=== PATIENT | male | born 1965 | race Caucasian/White ===

== ENCOUNTER → 2018-04-19 11:39 | Outpatient (CLI) | payer OTHER, SELFPAY | PROVIDERS: Family Provider Family Medicine; PCP Family Medicine | DX: Z23 Encounter for immunization (principal) | CPT/HCPCS: 90471; 90686 ==

== ENCOUNTER → 2019-03-27 14:18 | Outpatient (CLI) | payer OTHER, SELFPAY | PROVIDERS: PCP Family Medicine | DX: Z23 Encounter for immunization (principal) | CPT/HCPCS: 90471; 90686 ==

== ENCOUNTER → 2020-03-27 07:12 | Outpatient (CLI) | payer OTHER, SELFPAY ==
[2020-03-27 09:36] LABS: Alanine Aminotransferase 44 IU/L (<50); Albumin 4.3 g/dL (3.5-5.0); Albumin Globulin Ratio 1.7 (1.0-2.8); Alkaline Phosphatase 41 U/L (38-126); Aspartate Aminotransferase 25 IU/L (17-59); BUN Creatinine Ratio 18.3 (6-22); Bilirubin Total 0.8 mg/dL (0.2-1.3); Blood Urea Nitrogen 17 mg/dL (9-20); Calcium 9.2 mg/dL (8.4-10.2); Carbon Dioxide 26 mmol/L (22-32); Chloride 106 mmol/L (98-107); Cholesterol 190 mg/dL (140-199); Estimated Glomerular Filt Rate > 60.0 mL/min (>60); Globulin 2.5 g/dL (1.7-4.1); Glucose 95 mg/dL (70-100); HDL Cholesterol 36 mg/dL (40-60); HEMOLYSIS < 15 (0-50); LDL Cholesterol Calculated 123 mg/dL (<100); Potassium 3.8 mmol/L (3.4-5.1); Sodium 141 mmol/L (137-145); Total Protein 6.8 g/dL (6.3-8.2); Triglycerides 156 mg/dL (35-150)
[2020-03-27 10:05] LABS: Prostate Specific Antigen Scrn 2.81 ng/mL (0.1-4.0)
== END ==
PROVIDERS: PCP Family Medicine; Referring Provider Internal Medicine; Visit Provider Internal Medicine
DX: J45.20 Mild intermittent asthma, uncomplicated (principal); Z13.1 Encounter for screening for diabetes mellitus; Z13.220 Encounter for screening for lipoid disorders; Z13.6 Encounter for screening for cardiovascular disorders; Z12.5 Encounter for screening for malignant neoplasm of prostate
CPT/HCPCS: 36415; 80053; 80061; G0103

== ENCOUNTER → 2020-03-29 00:08 | Outpatient (CLI) | payer OTHER, SELFPAY | PROVIDERS: PCP Family Medicine; Referring Provider Internal Medicine; Visit Provider Internal Medicine | DX: Z23 Encounter for immunization (principal) | CPT/HCPCS: 90471; 90686 ==

== ENCOUNTER → 2020-06-25 10:32 | Outpatient (CLI) | payer OTHER, SELFPAY ==
[2020-06-25] MEDS: COVID-19 VACC(MODERNA-1)/PF 100 MCG/0.5 ML VIAL IM (10:37)
== END ==
PROVIDERS: PCP Family Medicine; Visit Provider Internal Medicine
DX: Z23 Encounter for immunization (principal)
CPT/HCPCS: 0011A; 91301

== ENCOUNTER → 2020-07-22 08:12 | Outpatient (CLI) | payer OTHER, SELFPAY ==
[2020-07-22] MEDS: COVID-19 VACC #2, MRNA(MOD) 100 MCG/0.5 ML VIAL IM (08:15)
== END ==
PROVIDERS: PCP Family Medicine; Visit Provider Internal Medicine
DX: Z23 Encounter for immunization (principal)
CPT/HCPCS: 0012A; 91301

== ENCOUNTER → 2021-04-08 15:35 | Outpatient (CLI) | payer OTHER, SELFPAY ==
[2021-04-08 16:10] LABS: COVID19 -Nasal RAPID Negative (Negative)
== END ==
PROVIDERS: PCP Family Medicine; Referring Provider Nurse Practitioner; Visit Provider Nurse Practitioner
DX: Z20.822 Contact with and (suspected) exposure to COVID-19 (principal)
CPT/HCPCS: 87635

== ENCOUNTER → 2021-04-20 19:31 | Outpatient (CLI) | payer OTHER, SELFPAY | PROVIDERS: PCP Family Medicine; Referring Provider Internal Medicine; Visit Provider Internal Medicine | DX: Z23 Encounter for immunization (principal) | CPT/HCPCS: 90471; 90686 ==

== ENCOUNTER → 2021-04-24 12:14 | Outpatient (CLI) | payer OTHER, SELFPAY ==
[2021-04-24] MEDS: COVID-19 VACC #3, MRNA(MOD) 50 MCG/0.25 ML VIAL IM (12:19)
== END ==
PROVIDERS: PCP Family Medicine; Visit Provider Internal Medicine
DX: Z23 Encounter for immunization (principal)
CPT/HCPCS: 0013A; 91301

== ENCOUNTER → 2022-03-26 12:39 | Outpatient (CLI) | payer OTHER, SELFPAY | PROVIDERS: Referring Provider Internal Medicine; Visit Provider Internal Medicine | DX: Z23 Encounter for immunization (principal) | CPT/HCPCS: 90471; 90686 ==

== ENCOUNTER 2022-10-07 08:09 | Day surgery (SDC) | payer OTHER, SELFPAY ==
--- NOTE | 2022-10-07 | PATH_ITS ---
[facility] Accession Number: [id number] No. of containers..04 Tissue . 01 Material submitted: . PART A: cecum - CECAL POLUYP X 2 PART B: colon - TRANSVERSE COLON POLYP PART C: colon - DESCENDING COLON POLYP PART D: rectum - RECTAL POLYP . 01 Diagnosis: A. Cecal Polyps: Tubular adenoma x2. . B. Transverse Colon Polyp: Colonic mucosa with prominent benign lymphoid aggregate. Negative for dysplasia or malignancy. . C. Descending Colon Polyp: Tubular adenoma. . D. Rectal Polyp: Hyperplastic polyp. MRV 10/12/2022 1243 Local . 01 Electronically signed: . Jerry Hi MD, PhD, Pathologist NPI- [id number] . 01 Gross description: . Part A: CECAL POLUYP X 2: Received in formalin are 2 fragment(s) of patricio, soft tissue measuring 0.3 x 0.2 x 0.2 cm to 0.6 x 0.3 x 0.2 cm submitted entirely in 1 cassette(s) Part B: TRANSVERSE COLON POLYP: Received in formalin is 1 fragment(s) of patricio, soft tissue measuring 0.7 x 0.3 x 0.2 cm submitted entirely in 1 cassette(s) Part C: DESCENDING COLON POLYP: Received in formalin are 4 fragment(s) of patricio, soft tissue measuring 0.2 x 0.2 x 0.2 cm to 0.5 x 0.4 x 0.3 cm submitted entirely in 1 cassette(s) Part D: RECTAL POLYP: Received in formalin is 1 fragment(s) of patricio, soft tissue measuring 0.6 x 0.4 x 0.4 cm submitted entirely in 1 cassette(s) /LIONEL 10/08/2022 1831 Local . 01 Pathologist provided ICD-10: D12.0, D12.4, K62.1 . 01 CPT . 007785, 979059, 506961, 851819 Performed at: 01 [facility] [address] [place] [address] [id number] MD Barrett Lorenzana MD Phone: [phone]
[2022-10-07 08:23] VITALS: BP 148/93; PULSE 93; RESP 18; TEMP 36.5; O2SAT 96; BMI 30.9
[2022-10-07] MEDS: LACTATED RINGERS 1,000 ML 42 ML IV (08:32)
--- NOTE | 2022-10-07 09:33 | PM.HP.1 ---
History of Present Illness History of Present Illness Date Patient Seen: 10/07/22 Time Patient Seen: 09:33 Chief complaint: Colonoscopy Narrative: Tree is a 57-year-old man who is here for a colonoscopy. His last colonoscopy was 5 years ago and was normal. He had 1 about 10 years ago with at least 1 tubular adenoma removed. [facility] Medical History (Updated 10/07/22 @ 09:34 by Darvin Boyd MD) Asthma, mild intermittent BMI 30.0-30.9,adult Essential hypertension Surgical History (Updated 10/18/17 @ 05:05 by Conversion Provider) History of vasectomy Family History (Updated 10/05/16 @ 00:00 by Conversion Provider) Father Hypertension Mother Age: 79 Hypertension High cholesterol Social History Smoking Status: Never smoker alcohol intake: former Meds Home Medications and Allergies Home Medications Medication Instructions Recorded Confirmed Type albuterol sulfate 90 mcg/actuation 2 puff inhalation Q4-6H PRN 06/09/20 10/07/22 Rx aerosol inhaler (Ventolin HFA) shortness of breath or wheezing #18 grams triamcinolone acetonide 0.1 % 1 applic topical QID #80 grams 03/30/21 10/07/22 Rx topical cream amlodipine 5 mg tablet 5 mg PO DAILY #90 tabs 03/22/22 10/07/22 Rx fluticasone propionate 220 2 puff inhalation BID #36 grams 04/12/22 10/07/22 Rx mcg/actuation HFA aerosol inhaler (Flovent HFA) alfuzosin 10 mg tablet,extended 10 mg PO DAILY #90 tabs 04/13/22 10/07/22 Rx release 24 hr omeprazole 40 mg capsule,delayed 40 mg PO BID #180 caps 07/31/22 10/07/22 Rx release Allergies Allergy/AdvReac Type Severity Reaction Status Date / Time codeine [CODEINE] Allergy Mild NAUSEA Verified 10/07/22 08:32 NUTS Allergy Severe THROAT Uncoded 10/07/22 08:32 SWELLS Exam Vital Signs (past 8 hours): - 10/07/22 08:23 Temperature 97.7 F Pulse Rate 93 H Respiratory Rate 18 Blood Pressure 148/93 H Pulse Oximetry 96 Oxygen Delivery Method Room Air Oxygen Delivery Method Room Air Const General: healthy appearing Assessment & Plan Assessment and plan (1) History of colon polyps: Status: Acute Plan 57-year-old man with a history colon polyps. We reviewed the risks benefits and rationale for a colonoscopy and he would like to proceed.
--- NOTE | 2022-10-07 10:21 | PM.OP.COLON ---
Operative Date/Time/Diagnoses Date of procedure: 10/07/22 Time of procedure: 10:21 Pre-op diagnosis: History of polyps Post-op diagnosis: same Procedure & Clinicians Study performed: Colonoscopy Same procedure as scheduled: Yes Surgeon: Darvin Boyd Procedure Notes Procedure in detail: Surgeon: Darvin Boyd MD Anesthesia: Myah Dumont MD Procedure: The patient was brought to the endoscopy suite, placed in left lateral decubitus position. The patient was connected to monitoring devices. A time-out was performed. Sedation was administered. Once the patient was adequately sedated, a digital rectal exam was performed and was normal. The scope was then inserted and advanced to the cecum where the appendiceal orifice was identified and photographed. The scope was then slowly withdrawn over greater than 6 minutes. The mucosa was thoroughly inspected. There were 2 small polyps in the cecum, each about 5 mm, removed with cold snare and sent together. There was a 5 mm polyp in the transverse colon removed with a cold snare. Were 2 polyps in the descending colon at about 65 cm, code removed with cold snare and sent together. One of them was 5 mm and 1 was about 8 mm. There was scattered diverticulosis in the sigmoid colon. There was a 5 mm polyp in the rectum removed with cold snare. The scope was retroflexed in the rectum. No other abnormalities were noted. The scope was straightened and removed. The patient was awakened and brought to recovery. Scope withdrawal time: 27 minutes Sedation time: 32 minutes EBL: 5 mL Findings: Multiple subcentimeter polyps as described above, scattered diverticulosis Post-procedure Disposition: PACU
[2022-10-07 10:25] VITALS: BP 107/70; PULSE 75; RESP 13; TEMP 36.4; O2SAT 96
[2022-10-07 10:30] VITALS: BP 109/75; PULSE 69; RESP 12; O2SAT 97
[2022-10-07 10:35] VITALS: BP 110/79; PULSE 74; RESP 13; O2SAT 96
[2022-10-07 10:40] VITALS: BP 119/82; PULSE 73; RESP 19; TEMP 36.4; O2SAT 96
[2022-10-07 10:53] VITALS: BP 111/72; PULSE 72; RESP 16; O2SAT 100
== END 2022-10-07 11:12 | disposition home or self-care (01) ==
PROVIDERS: Referring Provider Surgery; Visit Provider Surgery
PROC: 0DJD8ZZ Inspection of Lower Intestinal Tract, Via Natural or Artificial Opening Endoscopic (ICD-10-PCS; CPT 45378; principal; 2022-10-07 09:15)
DX: Z12.11 Encounter for screening for malignant neoplasm of colon (principal); Z86.010 Personal history of colon polyps; K57.30 Diverticulosis of large intestine without perforation or abscess without bleeding; D12.0 Benign neoplasm of cecum; D12.4 Benign neoplasm of descending colon; K62.1 Rectal polyp
CPT/HCPCS: 45385; J2704

== ENCOUNTER → 2023-03-21 16:00 | Outpatient (CLI) | payer OTHER, SELFPAY | PROVIDERS: Referring Provider Family Medicine; Visit Provider Family Medicine | DX: Z23 Encounter for immunization (principal) | CPT/HCPCS: 90471; 90686 ==

== ENCOUNTER → 2023-12-07 07:34 | Outpatient (CLI) | payer OTHER, SELFPAY ==
[2023-12-07 08:18] LABS: Add Manual Diff / Slide Review NO; Basophils Absolute Auto 100 /uL (0-100); Basophils Percent Auto 1.2 % (0-2); Eosinophils Absolute Auto 500 /uL (0-450); Hematocrit 45.6 % (41-53); Hemoglobin 15.4 g/dL (13.5-17.5); Lymphocytes Absolute Auto 2300 /uL (1100-4500); Lymphocytes Percent Auto 41.4 % (25-40); Mean Corpuscular HGB Conc 33.8 % (30-36); Mean Corpuscular Hemoglobin 30.9 PG (26-34); Mean Corpuscular Volume 91.4 fL (80-100); Monocytes Absolute Auto 500 /uL (0-900); Monocytes Percent Auto 8.8 % (3-14); Neutrophils Absolute Auto 2200 /uL (1500-7000); Neutrophils Percent Auto 39.6 % (50-75); Platelet Count 228 X10^3/uL (150-400); Red Blood Cell Count 4.99 X10^6/uL (4.5-5.9); Red Cell Distribution Width 13.1 % (11.6-14.8); White Blood Cell Count 5.5 X10^3/uL (4.5-11.0)
[2023-12-07 08:29] LABS: Alanine Aminotransferase 40 IU/L (<50); Albumin 4.5 g/dL (3.5-5.0); Albumin Globulin Ratio 1.7 (1.0-2.8); Alkaline Phosphatase 54 U/L (38-126); Aspartate Aminotransferase 28 IU/L (17-59); Blood Urea Nitrogen 15 mg/dL (9-20); Calcium 8.9 mg/dL (8.4-10.2); Carbon Dioxide 26 mmol/L (22-32); Chloride 107 mmol/L (98-107); Cholesterol 217 mg/dL (140-199); Estimated Glomerular Filt Rate > 60 mL/min (>60); Globulin 2.7 g/dL (1.7-4.1); Glucose 108 mg/dL (70-100); HDL Cholesterol 40 mg/dL (40-60); HEMOLYSIS < 15 (0-50); LDL Cholesterol Calculated 127 mg/dL (<100); Potassium 3.8 mmol/L (3.4-5.1); Sodium 140 mmol/L (137-145); Total Protein 7.2 g/dL (6.3-8.2); Triglycerides 251 mg/dL (35-150)
[2023-12-07 09:00] LABS: Prostate Specific Antigen Scrn 6.37 ng/mL (0.1-4.0)
[2023-12-08 07:36] LABS: PSA, Total 5.8 ng/mL (0.0-4.0)
== END ==
PROVIDERS: Referring Provider Internal Medicine; Visit Provider Internal Medicine
DX: Z13.6 Encounter for screening for cardiovascular disorders (principal); Z13.220 Encounter for screening for lipoid disorders; Z12.5 Encounter for screening for malignant neoplasm of prostate; D64.9 Anemia, unspecified; R97.20 Elevated prostate specific antigen [PSA]; I10 Essential (primary) hypertension
CPT/HCPCS: 36415; 80053; 80061; 84153; 84154; 85025; G0103

== ENCOUNTER → 2024-06-21 08:22 | Outpatient (CLI) | payer OTHER, SELFPAY ==
[2024-06-22 12:36] LABS: PSA Free % 27.9 % (.); PSA, Total 6.1 ng/mL (0.0-4.0)
== END ==
PROVIDERS: Referring Provider Internal Medicine; Visit Provider Internal Medicine
DX: R97.20 Elevated prostate specific antigen [PSA] (principal)
CPT/HCPCS: 36415; 84153; 84154

== ENCOUNTER → 2024-08-27 07:51 | Outpatient (CLI) | payer OTHER, SELFPAY ==
--- NOTE | 2024-08-27 07:52 | DI.RAD.S_ITS ---
PROCEDURE: XR FOOT RT MIN 3V INDICATIONS: foot pain, distal end of 4th and 5th metatarsal TECHNIQUE: 3 views of the foot were acquired. COMPARISON: None. FINDINGS: Bones: No fractures or dislocations. No suspicious bony lesions. Soft tissues: No tibiotalar joint effusion. Achilles tendon appears normal. Plantar calcaneal enthesopathy and atherosclerotic vascular disease. IMPRESSION: No acute bony abnormality. Dictated by: Prince Dorsey M.D. on 08/27/2024 at 17:19 Approved by: Prince Dorsey M.D. on 08/27/2024 at 17:23
== END ==
PROVIDERS: Referring Provider Internal Medicine; Visit Provider Internal Medicine
DX: M79.671 Pain in right foot (principal)
CPT/HCPCS: 73630

== ENCOUNTER → 2025-01-07 14:33 | Outpatient (CLI) | payer OTHER, SELFPAY | PROVIDERS: Referring Provider Internal Medicine; Visit Provider Internal Medicine | DX: R97.20 Elevated prostate specific antigen [PSA] (principal) | CPT/HCPCS: 36415; 84153; 84154 ==